=== PATIENT | female | born 1970 | race Caucasian/White ===

== ENCOUNTER 2017-02-20 21:05 | Emergency (ER) | payer OTHER, BC ==
[~2017-02-20] VITALS: Ht 160 cm; Wt 134.6 kg
[2017-02-20 21:05] VITALS: Ht 160 cm; Wt 134.6 kg
[~2017-02-20 21:05] MED LIST: ACET650T5 PO; ALBU8.5H5 IH; CALC1CAP22 PO; CETI10TA56 PO; CRAN500C3 PO; DIPH25CA84 PO; EMOL454C5 TOP; ESTR2TAB PO; ETAN50DI SQ; FISH1CAP59 PO; FLUT1DIS32 INH; FOLI-40 PO; FURO40TA5 PO; GABA-338 PO; IBUP-1724 PO; INSU100V13 SQ; INSU100V8 SQ; LORA10TA7 PO; METH2.5T33 PO; MOEX15TA3 PO; MULT-969 PO; NEBI20TA2 PO; PROC-14 PO; RABE20TA23 PO; RANI150T12 PO; SERT-104 PO; SIME125C PO; SIMV10TA6 PO; ULTIMATE FLORA PO; [UNRECOGNIZED DRUG - CODE]; [UNRECOGNIZED DRUG - CODE] PO
--- OUTSIDE RECORDS SUMMARY | 2017-02-20 21:09 | XMS REPORT | Continuity of Care Document ---
Author Author [facility] Organization [facility] Address Unknown Phone Unavailable Allergies Active Description Code Type Severity Reaction Onset Reported/Identified Relationship to Patient Clinical Status Yes hydrocodone bit hydrocodone bit Drug Allergy Unknown HIVES 07/13/2012 Yes oxycodone oxycodone Drug Allergy Unknown HIVES 07/13/2012 Yes oxycodone HCl oxycodone HCl Drug Allergy Unknown HIVES 07/13/2012 Yes tramadol tramadol Drug Allergy Unknown HIVES 07/13/2012 Yes clarithromycin clarithromycin Drug Allergy Moderate HIVES 08/28/2012 Yes NSAIDS (Non-Steroidal Anti-Inflamma NSAIDS (Non-Steroidal Anti-Inflamma Drug Allergy Moderate ITCHING/HIVES 08/28/2012 Yes oxaprozin oxaprozin Drug Allergy Moderate HIVES 08/28/2012 Yes acetaminophen acetaminophen Drug Allergy Unknown HIVES/ ITCHING/ TROUBLE BREATHING 01/12/2015 Yes adhesive adhesive Drug Allergy Unknown ITCHING AT SITE 01/12/2015 Yes hydrocodone bit hydrocodone bit Drug Allergy Unknown HIVES / TROUBLE BREATHING/ ITCHING 01/12/2015 Yes oxycodone oxycodone Drug Allergy Unknown HIVES/ ITCHING/ TROUBLE BREATHING 01/12/2015 Yes tramadol tramadol Drug Allergy Unknown HIVES/ITCHING/ TROUBLE BREATHAING 01/12/2015 Medications Problems Procedures Code Description Performed By Performed On 14.74 [facility] VITRECTOMY NEC Shivam Cai MD 01/16/2015 14.9 OTHER POST SEGMENT OPS Shivam Cai MD 01/16/2015 Results Test Result Range GLUCOSE (POC) - 07/13/12 12:15 GLUCOSE (POC) 193 mg/dL 70-99 POTASSIUM - 07/13/12 12:20 POTASSIUM 4.3 mmol/L 3.5-5.3 GLUCOSE (POC) - 07/13/12 17:29 GLUCOSE (POC) 186 mg/dL 70-99 GLUCOSE (POC) - 08/31/12 07:44 GLUCOSE (POC) 247 mg/dL 70-99 GLUCOSE (POC) - 01/16/15 13:22 GLUCOSE (POC) 201 mg/dL 70-99 POTASSIUM - 01/16/15 13:30 POTASSIUM 4.4 mmol/L 3.5-5.3 GLUCOSE (POC) - 01/16/15 15:52 GLUCOSE (POC) 131 mg/dL 70-99 GLUCOSE (POC) - 01/16/15 17:45 GLUCOSE (POC) 131 mg/dL 70-99 Encounters ACCT No. Visit Date/Time Discharge Status Pt. Type Provider Facility Loc./Unit Complaint [id number] 01/16/2015 12:33:00 2014 18:22:00 DIS Outpatient Trell WILKINSON, [facility] WBlayneOPRA [id number] 08/31/2012 06:15:00 2011 13:45:00 DIS Outpatient Trell WILKINSON, [facility] WTRICE [id number] 07/13/2012 11:46:00 2011 19:28:00 DIS Outpatient Trell WILKINSON, [facility] WTRICE
--- OUTSIDE RECORDS SUMMARY | 2017-02-20 21:10 | XMS REPORT | Summary of Care ---
Author Author Jodi Martin M.A., Jill A Organization Unknown Address [address] [place], [place] [id number] Phone Unavailable Care Team Providers Care Climate Change Risk Assessor Name Role Phone Jodi Martin M.A., A Unavailable Unavailable Ken Hightower Unavailable Unavailable Functional Status Name Dates Details Functional status health issues are not documented Status: Name Dates Details Cognitive status health issues are not documented Status: Problems Name Dates Details Chronic tonsillitis (474.00, J35.01) Status: Active Laryngopharyngeal reflux (LPR) (478.79, K21.9) Status: Active Otalgia, left (388.70, H92.02) Status: Active Medications Name Dates Details Benadryl Allergy 25 MG Oral Capsule * Start 04-Feb-2017 Active Loratadine Allergy Relief 10 MG Oral Tablet Dispersible * Refills: 0 * Start 04-Feb-2017 Active Sertraline HCl - 50 MG Oral Tablet * Refills: 0 * Start 04-Feb-2017 Active RaNITidine HCl - 150 MG Oral Tablet * Refills: 0 * Start 04-Feb-2017 Active Moexipril HCl - 15 MG Oral Tablet * Refills: 0 * Start 04-Feb-2017 Active ProAir HFA 108 (90 Base) MCG/ACT Inhalation Aerosol Solution * Refills: 0 * Start 04-Feb-2017 Active Advair Diskus 500-50 MCG/DOSE Inhalation Aerosol Powder Breath Activated * Refills: 0 * Start 04-Feb-2017 Active Gabapentin 300 MG Oral Capsule TAKE 1 CAPSULE 3 times daily May use twice daily if desired. * Refills: 0 * Start 04-Feb-2017 Active Methotrexate 2.5 MG Oral Tablet TAKE 8 TABLETS PER WEEK. * Refills: 0 * Start 04-Feb-2017 Active Simvastatin 10 MG Oral Tablet * Refills: 0 * Start 04-Feb-2017 Active Estradiol 2 MG Oral Tablet TAKE 2 TABLET Daily * Refills: 0 * Start 04-Feb-2017 Active Furosemide 40 MG Oral Tablet * Refills: 0 * Start 04-Feb-2017 Active Misc Rx KANDI LANCETS 6 X DAILY * Refills: 0 * Start 04-Feb-2017 Active Triamcinolone Acetonide 0.1 % External Lotion * Refills: 0 * Start 04-Feb-2017 Active Bystolic 2.5 MG Oral Tablet TAKE 1 TABLET DAILY. * Refills: 0 * Start 04-Feb-2017 Active NovoLOG 100 UNIT/ML Subcutaneous Solution INJECT 30 UNIT 3 times daily * Refills: 0 * Start 04-Feb-2017 Active Clobetasol Propionate 0.05 % External Cream * Refills: 0 * Start 04-Feb-2017 Active Misc Rx MISC NATURAL PRODUCTSCAPSULE POWDER TO SLEEPTAKE 2 TABLETS BY MOUTH AT BEDTIME * Refills: 0 * Start 04-Feb-2017 Active Vanicream External Cream * Refills: 0 * Start 04-Feb-2017 Active Flonase Allergy Relief 50 MCG/ACT Nasal Suspension * Refills: 0 * Start 04-Feb-2017 Active Aciphex 20 MG Oral Tablet Delayed Release TAKE 1 TABLET DAILY. * Refills: 0 * Start 04-Feb-2017 Active Multivitamin Adult Oral Tablet * Refills: 0 * Start 04-Feb-2017 Active Vitamin D3 5000 UNIT Oral Tablet * Refills: 0 * Start 04-Feb-2017 Active Arthritis Pain 650 MG Oral Tablet Extended Release TAKE 2 TABLET PRN * Refills: 0 * Start 04-Feb-2017 Active Ibuprofen 200 MG Oral Capsule TAKE 1 CAPSULE EVERY 4 TO 6 HOURS. * Refills: 0 * Start 04-Feb-2017 Active Gas-X 80 MG Oral Tablet Chewable CHEW AND SWALLOW 1 TABLET 4 TIMES DAILY, AFTER MEALS AND AT BEDTIME. * Refills: 0 * Start 04-Feb-2017 Active Folic Acid 1 MG Oral Tablet TAKE 1 TABLET DAILY. * Quantity: 30 Refills: 6 * Start 04-Feb-2017 Active Prochlorperazine Maleate 10 MG Oral Tablet TAKE 1 TABLET 3 times daily * Refills: 0 * Start 04-Feb-2017 Active Fish Oil 1200 MG Oral Capsule Take 1 capsule twice daily * Quantity: 60 Refills: 5 * Start 04-Feb-2017 Active Cranberry Fruit 405 MG Oral Capsule Take 1 capsule twice daily * Refills: 0 * Start 04-Feb-2017 Active ZyrTEC Allergy 10 MG Oral Tablet TAKE 1 TABLET BY MOUTH DAILY * Refills: 0 * Start 04-Feb-2017 Active Meclizine HCl - 25 MG Oral Tablet TAKE ONE TABLET BY MOUTH THREE TIMES DAILY FOR DIZZINESS * Quantity: 90 Refills: 0 * Start 04-Feb-2017 Active Lantus 100 UNIT/ML Subcutaneous Solution INJECT 90 UNIT Bedtime * Refills: 0 * Start 04-Feb-2017 Active Tessalon Perles 100 MG Oral Capsule TAKE 1 CAPSULE 3 TIMES DAILY NEEDED. * Refills: 0 * Start 04-Feb-2017 Active Allergies and Adverse Reactions Name Dates Details Biaxin (Allergy) Status: Active Daypro (Allergy) Status: Active Lortab TABS (Allergy) Status: Active Percocet TABS (Allergy) Status: Active Ultram (Allergy) Status: Active Procedures Procedure Dates Details Procedures not documented Immunization Name Dates Details Immunizations not documented Family History Name Dates Details Family history of hypertension (V17.49, Z82.49) Status: Active Family history of lung disease (V19.8, Z83.6) Status: Active Family history of sleep apnea (V19.8, Z82.0) Status: Active Family history of diabetes mellitus (V18.0, Z83.3) Status: Active Family history of thyroid disease (V18.19, Z83.49) Status: Active Social History Name Dates Details - Status: Name Dates Details Never smoker Vital Signs Date Test Result Details 04-Feb-2017 11:08 Temperature 97.7 f Status: Comments: Method: Heart Rate 94 /min Status: Comments: Location: ; Physical Findings 18 Status: Comments: Respiration Height 63.5 in Status: Weight 319 lb Status: Physical Findings 97 Status: Comments: O2 Saturation Body Mass Index Calculated 55.62 kg/m2 Status: Body Surface Area Calculated 2.37 m2 Status: Results Date Description Value Details Results not documented Plan of Care Name Dates Details Planned Observations Planned Goals not documented Instructions Name Dates Details Instructions not documented Encounters Appointment; Alicia Martin M.A.|C.C.CBlayne-A Encounter Diagnosis: Problem not documented On 04-Feb-2017 11:00"
--- OUTSIDE RECORDS SUMMARY | 2017-02-20 21:10 | XMS REPORT | Referral Summary ---
Author Author [facility] Organization [facility] Address Unknown Phone Unavailable Care Team Providers Care Insurance Administrative Assistant Name Role Phone Demar Hightower Primary Care Physician [phone] Encounter VC Date(s): 10/30/16 - 10/30/16 [facility] [address] [place] [address] GIANNI Mckenna [id number] Discharge Diagnosis: Chronic GERD Discharge Diagnosis: Frequent loose stools Discharge Disposition: 01-Home or Self Care Attending Physician: Himanshu Ang MD Admitting Physician: Himanshu Ang MD Referring Physician: Ken Hightower DO Vital Signs Most recent to 1 oldest [Reference Range]: Peripheral Pulse 102 bpm Rate [60-100 bpm] *HI* (10/30/16 3:45 PM) Respiratory Rate 18 br/min [14-20 br/min] (10/30/16 3:45 PM) Blood Pressure 148/80 mmHg [90-140/60-90 mmHg] *HI* (10/30/16 3:45 PM) SpO2 97 % (10/30/16 3:45 PM) Problem List Condition Effective Dates Status Health Status Informant Asthma(Confirmed) Active Cataracts(Confirmed) Active Depression(Confirmed Active ) Diabetes(Confirmed) Active High risk medication Active use(Confirmed) Fatigue(Confirmed) Active Fibromyalgia(Confirm Active ed) Hyperlipidemia(Confi Active rmed) Hypertension(Confirm Active ed) Insomnia(Confirmed) Active Morbid Active patient obesity(Confirmed) RF -VE, Anti CCP Resolved -ve, CRP 1.4(Confirmed) Rheumatoid Active arthritis(Confirmed) Trigger Active finger(Confirmed) Vitamin D Active deficiency(Confirmed ) Allergies, Adverse Reactions, Alerts Substance Reaction Severity Status Biaxin Active Daypro Active HYDROcodone Active Percocet 7.5/500 Active traMADol Active Medications acetaminophen 650 mg oral tablet, extended release 1 tabs, Oral, Daily, 0 Refill(s) Start Date: 03/20/14 Status: Ordered AcipHex 20 mg oral delayed release tablet tabs, Oral, Daily, 0 Refill(s) Start Date: 02/07/15 Status: Ordered Advair Diskus 500 mcg-50 mcg inhalation powder puffs, Inhalation, BID, 0 Refill(s) Start Date: 03/20/14 Status: Ordered Benadryl Allergy 25 mg, Oral, Bedtime (once a day), as needed for insomnia, 0 Refill(s) Start Date: 03/20/14 Status: Ordered Bystolic 20 mg oral tablet 20 mg 1 tabs, Oral, Daily, # 30 tabs, 0 Refill(s) Start Date: 10/30/16 Status: Ordered calcium (as carbonate)-vitamin D 600 mg-800 intl units oral tablet, chewable 2 tabs, Chewed, BID, # 60 tabs, 0 Refill(s) Start Date: 10/30/16 Status: Ordered cetirizine 10 mg oral tablet tabs, Oral, Daily, as needed for allergy symptoms, 0 Refill(s) Start Date: 02/07/15 Status: Ordered clobetasol 0.05% topical ointment 1 humberto, Topical, BID, # 45 g, 0 Refill(s), Pharmacy: [id number] Start Date: 12/04/15 Status: Ordered Compazine 5 mg oral tablet mg tabs, Oral, QID, as needed for nausea/vomiting, 0 Refill(s) Start Date: 03/19/16 Status: Ordered Cranberry oral tablet 0 Refill(s) Start Date: 02/07/15 Status: Ordered Enbrel SureClick 50 mg/mL subcutaneous solution See Instructions, INJECT 1ML SUB-Q ONCE A WEEK, # 4 Each, 2 Refill(s), Pharmacy : [id number], INJECT 1ML SUB-Q ONCE A WEEK Start Date: 08/08/15 Status: Ordered estradiol 2 mg oral tablet tabs, Oral, Daily, 0 Refill(s) Start Date: 03/20/14 Status: Ordered Fish Oil 1200 mg oral capsule caps, Oral, BID, 0 Refill(s) Start Date: 02/07/15 Status: Ordered Flonase 50 mcg/inh nasal spray 1 sprays, Nasal, BID, 0 Refill(s) Start Date: 10/30/16 Status: Ordered folic acid 1 mg oral tablet See Instructions, TAKE TWO TABLETS BY MOUTH ONCE DAILY, # 180 tabs, 4 Refill(s) , Pharmacy: [id number], TAKE TWO TABLETS BY MOUTH ONCE DAILY Start Date: 10/24/15 Status: Ordered furosemide 40 mg oral tablet 2 tabs, Oral, Daily, 0 Refill(s) Start Date: 03/20/14 Status: Ordered gabapentin 300 mg oral capsule caps, Oral, TID, 0 Refill(s) Start Date: 03/20/14 Status: Ordered Gas-X Extra Strength 125 mg oral capsule 1 caps, Oral, QID, prn, # 30 caps, 0 Refill(s) Start Date: 02/07/15 Status: Ordered Glucagon Emergency Kit for Low Blood Sugar mg, SubCutaneous, Once, 0 Refill(s) Start Date: 03/20/14 Status: Ordered ibuprofen 200 mg oral tablet 4 tabs, Oral, Bedtime (once a day), 0 Refill(s) Start Date: 03/20/14 Status: Ordered Lantus 100 units/mL subcutaneous solution 90 units, SubCutaneous, Once, 0 Refill(s) Start Date: 03/20/14 Status: Ordered loratadine 10 mg oral tablet tabs, Oral, Daily, 0 Refill(s) Start Date: 05/03/14 Status: Ordered meclizine 25 mg oral tablet 25 mg 1 tabs, Oral, q6hr, as needed for dizziness, 0 Refill(s) Start Date: 10/30/16 Status: Ordered methotrexate 2.5 mg oral tablet 8 tabs, Oral, qWeek, # 104 tabs, 0 Refill(s), Pharmacy: [id number], 8 tabs Oral qWeek Start Date: 05/03/14 Status: Ordered moexipril 15 mg oral tablet 1 tabs, Oral, Daily, # 30 tabs, 0 Refill(s) Start Date: 03/20/14 Status: Ordered multivitamin Daily, 0 Refill(s) Start Date: 02/07/15 Status: Ordered NovoLOG 100 units/mL subcutaneous solution See Instructions, SubCutaneous q 6 hours sliding scale 13-30 units, 0 Refill(s) Start Date: 10/30/16 Status: Ordered Power to sleep at bedtime Power to sleep at bedtime, 0 Refill(s) Start Date: 05/02/15 Status: Ordered ProAir HFA 90 mcg/inh inhalation aerosol puffs, Inhalation, QID, 0 Refill(s) Start Date: 03/20/14 Status: Ordered ranitidine 150 mg oral tablet 2 tabs, Oral, Bedtime (once a day), 0 Refill(s) Start Date: 03/20/14 Status: Ordered sertraline 50 mg oral tablet 1 tabs, Oral, Daily, # 30 tabs, 0 Refill(s) Start Date: 03/20/14 Status: Ordered simvastatin 10 mg oral tablet 10 mg 1 tabs, Oral, Bedtime (once a day), # 30 tabs, 0 Refill(s) Start Date: 10/30/16 Status: Ordered triamcinolone 0.1% topical cream 1 humberto, Topical, BID, to affected area as directed when needed, # 454 g, 0 Refill (s), Pharmacy: [id number] Start Date: 06/28/15 Status: Ordered Tylenol Arthritis Caplet 650 mg oral tablet, extended release 1,300 mg 2 tabs, Oral, Daily, Pain, 0 Refill(s) Start Date: 10/30/16 Status: Ordered Vitamin D3 5000 intl units oral capsule 1 caps, Oral, Daily, with food, # 100 caps, 0 Refill(s) Start Date: 02/07/15 Status: Ordered Results No data available for this section Immunizations Given and Recorded Vaccine Date Status Refusal Reason pneumococcal 23-polyvalent vaccine 09/29/00 Recorded Procedures Procedure Date Related Diagnosis Body Site Appendectomy1 Cardiac catheterisation Carpal tunnel release2 section3 Miscellaneous operations4 [id number] 4sinus surgery Social History Social History Type Response Smoking Status Never smoker Assessment and Plan Extracted from: Title: Ambulatory Patient Education Author: Himanshu Ang MD Date: 09/05 Gastroenterology Chronic Diarrhea Diarrhea is frequent loose and watery bowel movements. It can cause you to feel weak and dehydrated. Dehydration can cause you to become tired and thirsty and to have a dry mouth, decreased urination, and dark yellow urine. Diarrhea is a sign of another problem, most often an infection that will not last long. In most cases, diarrhea lasts 23 days. Diarrhea that lasts longer than 4 weeks is called long-lasting (chronic) diarrhea. It is important to treat your diarrhea as directed by your health care provider to lessen or prevent future episodes of diarrhea. CAUSES There are many causes of chronic diarrhea. The following are some possible causes: Gastrointestinal infections caused by viruses, bacteria, or parasites. Food poisoning or food allergies. Certain medicines, such as antibiotics, chemotherapy, and laxatives. Artificial sweeteners and fructose. Digestive disorders, such as celiac disease and inflammatory bowel diseases. Irritable bowel syndrome. Some disorders of the pancreas. Disorders of the thyroid. Reduced blood flow to the intestines. Cancer. Sometimes the cause of chronic diarrhea is unknown. RISK FACTORS Having a severely weakened immune system, such as from HIV or AIDS. Taking certain types of cancer-fighting drugs (such as with chemotherapy ) or other medicines. Having had a recent organ transplant. Having a portion of the stomach or small bowel removed. Traveling to countries where food and water supplies are often contaminated. SYMPTOMS In addition to frequent, loose stools, diarrhea may cause: Cramping. Abdominal pain. Nausea. Fever. Fatigue. Urgent need to use the bathroom. Loss of bowel control. DIAGNOSIS Your health care provider must take a careful history and perform a physical exam. Tests given are based on your symptoms and history. Tests may include: Blood or stool tests. Three or more stool samples may be examined. Stool cultures may be used to test for bacteria or parasites. X-rays. A procedure in which a thin tube is inserted into the mouth or rectum ( endoscopy). This allows the health care provider to look inside the intestine. TREATMENT Treatment is aimed at correcting the cause of the diarrhea when possible. Diarrhea caused by an infection can often be treated with antibiotic medicines. Diarrhea not caused by an infection may require you to take long-term medicine or have surgery. Specific treatment should be discussed with your health care provider. If the cause cannot be determined, treatment aims to relieve symptoms and prevent dehydration. Serious health problems can occur if you do not maintain proper fluid levels. Treatment may include: Taking an oral rehydration solution (ORS). Not drinking beverages that contain caffeine (such as tea, coffee, and soft drinks). Not drinking alcohol. Maintaining well-balanced nutrition to help you recover faster. HOME CARE INSTRUCTIONS Drink enough fluids to keep urine clear or pale yellow. Drink 1 cup (8 oz ) of fluid for each diarrhea episode. Avoid fluids that contain simple sugars, fruit juices, whole milk products, and sodas. Hydrate with an ORS. You may purchase the ORS or prepare it at home by mixing the following ingredients together: tsp (1.73 mL) table salt. tsp (3 mL) baking soda. tsp (1.7 mL) salt substitute containing potassium chloride. 1 tbsp (20 mL) sugar. 4.2 c (1 L) of water. Certain foods and beverages may increase the speed at which food moves through the gastrointestinal (GI) tract. These foods and beverages should be avoided. They include: Caffeinated and alcoholic beverages. High-fiber foods, such as raw fruits and vegetables, nuts, seeds, and whole grain breads and cereals. Foods and beverages sweetened with sugar alcohols, such as xylitol, sorbitol, and mannitol. Some foods may be well tolerated and may help thicken stool. These include: Starchy foods, such as rice, toast, pasta, low-sugar cereal, oatmeal, grits, baked potatoes, crackers, and bagels. Bananas. Applesauce. Add probiotic-rich foods to help increase healthy bacteria in the GI tract. These include yogurt and fermented milk products. Wash your hands well after each diarrhea episode. Only take seit-eyr-bvlhjvc or prescription medicines as directed by your health care provider. Take a warm bath to relieve any burning or pain from frequent diarrhea episodes. SEEK MEDICAL CARE IF: You are not urinating as often. Your urine is a dark color. You become very tired or dizzy. You have severe pain in the abdomen or rectum. Your have blood or pus in your stools. Your stools look black and tarry. SEEK IMMEDIATE MEDICAL CARE IF: You are unable to keep fluids down. You have persistent vomiting. You have blood in your stool. Your stools are black and tarry. You do not urinate in 68 hours, or there is only a small amount of very dark urine. You have abdominal pain that increases or localizes. You have weakness, dizziness, confusion, or lightheadedness. You have a severe headache. Your diarrhea gets worse or does not get better. You have a fever or persistent symptoms for more than 23 days. You have a fever and your symptoms suddenly get worse. MAKE SURE YOU: Understand these instructions. Will watch your condition. Will get help right away if you are not doing well or get worse. This information is not intended to replace advice given to you by your health care provider. Make sure you discuss any questions you have with your health care provider. Document Released: 12/26/2004 Document Revised: 10/11/2014 Document Reviewed: [employer] Patient Education 2016 [employer] No follow up information was provided. Extracted from: Title: Office Visit Note Author: Himanshu Ang MD Date: 10/30/16 Assessment/Plan 1.Chronic GERD Ordered: Office Visit Level 4 New 66574 2.Frequent loose stools Ordered: Office Visit Level 4 New [address]4811 3. Dysphagia Plan: Bidirectional endoscopy I did review the patient's chart including office note performed by her PCP fromOctober 15, 2016. Reviewed a rheumatology notefrom March 19, 2016. Reviewed recent gallbladder sonogram that was normal from October 16, 2016. I informed the patient that given her increasing heartburn/GERD, onset of dysphagia,change in bowel habits withdiarrheawould recommend that she undergo both an EGD as well as a colonoscopy for further evaluation. If a stricture is noted within her esophagus we will perform a dilatation at the same setting. Additionally upon colonoscopyif no abnormalities are noted we will likely perform random biopsiesto rule in or rule out the process of microscopic colitis.Risk of endoscopy was discussed with the patient. Risks include but are not inclusive of bleeding and/or perforation requiring surgery. Patient understood and was scheduled.
--- OUTSIDE RECORDS SUMMARY | 2017-02-20 21:10 | XMS REPORT | Summary of Care ---
Author Author Micheal Garduno M.D. Organization Unknown Address Unknown Phone Unavailable Care Team Providers Care Dough Scaler And Mixer Name Role Phone Micheal Garduno M.D. Unavailable Unavailable Ken Hightower Unavailable Unavailable Functional [...] Dates Details Instructions not documented Encounters Appointment; Micheal Garduno M.D. Encounter Diagnosis: Problem not documented On 04-Feb-2017 11:00
--- OUTSIDE RECORDS SUMMARY | 2017-02-20 21:10 | XMS REPORT ---
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 Active 56666171 Assessment Controlled type 1 diabetes mellitus with both eyes affected by retinopathy and macular edema, unspecified retinopathy severity E10.311 Sep, Active 84031974 Problem Controlled type 1 diabetes mellitus with both eyes affected by retinopathy and macular edema, unspecified retinopathy severity E10.311 Active 23209270 Problem Hypertension I10 Active 00763851 Problem Hyperlipemia E78.5 Active 90764946 Problem Proteinuria 791.0 Active 62590953 Problem Sleep apnea G47.30 Active 39235966 Problem Vitamin D deficiency E55.9 Active 04323036 ALLERGIES Substance Reaction Event Type Date Status Biaxin *macrolides* Unknown Non Drug Allergy Sep, Active Percocet *analgesics Opioid* Unknown Non Drug Allergy Sep, Active Ultram *analgesics Opioid* Unknown Non Drug Allergy Sep, Active Lortab *analgesics Opioid* Unknown Non Drug Allergy Sep, Active Daypro *analgesics Antiinflammatory* Unknown Non Drug Allergy Sep, Active SOCIAL HISTORY No smoking Hx information available PLAN OF CARE Activity Details Pending Test Hemoglobin A1c (HbA1c) 3 Months, prn,Reason: VITAL SIGNS Height 63.5 in 2016-10-09 Weight 325 lbs 2016-10-09 Heart Rate 78 /min 2016-10-09 Respiratory Rate 16 /min 2016-10-09 BMI 56.66 kg/m2 2016-10-09 Blood pressure systolic 130 mm Hg 2016-10-09 Blood pressure diastolic 72 mm Hg 2016-10-09 MEDICATIONS Medication Instructions Dosage Frequency Start Date End Date Duration Status Zyrtec Allergy 10 MG Orally Once a day 1 tablet 24h Active Gabapentin 300 MG Orally Three times a day 1 capsule 8h Active NovoLog 100U/ML Subcutaneous three times daily with meals 30 units 30 days Active Moexipril HCl 15 MG Orally Once a day 1 tablet 24h Active Furosemide 40 MG Orally Twice a day 1 tablet 12h Active Advair Diskus 500-50 MCG/DOSE Inhalation Twice a day 1 puff 12h Active Sertraline HCl 50 MG Orally Once a day 1 tablet 24h Active Aciphex 20 MG Orally Once a day 1 tablet 24h Active Enbrel SureClick 50 MG/ML Subcutaneous once a week 1 ml Sep, Active Benadryl Allergy 25 MG Orally daily 2 tablets as needed 24h Active Meclizine HCl 25 MG Orally Once a day 1 tablet as needed 24h Active Cranberry 405 MG Orally Twice a day 1 tablet with meals 12h Active Gas-X 80 MG Orally as needed 1-2 tablets Active Clobetasol Propionate 0.05 % Externally Twice a day 1 application to affected area 12h Active Ibuprofen 200 MG Orally every 6 hrs 1 tablet as needed 6h Active Methotrexate 2.5 MG Oral every Friday 8 tablets Active Simvastatin 10 MG Orally Once a day 1 tablet in the evening 24h Active ProAir HFA 108 (90 Base) MCG/ACT Inhalation 3 puffs as needed 0 Active Loratadine Allergy Relief 10 MG Orally Once a day 1 tablet 24h Active Misc Natural Products - Orally at bedtime Power to Sleep PM 2 tablet Active Carlito Contour Next Test 1 In Vitro 6 times a day as directed 4h Aug, 30 days Active Folic Acid 1 MG Orally Once a day 1 tablet 24h Active Bystolic 2.5 MG Orally Once a day 1 tablet 24h Active Ranitidine HCl 150 MG Orally Once a day 1 tablet as needed 24h Active Triamcinolone Acetonide 0.1 % Externally Twice a day 1 application to affected area 12h Active Multivitamin Adult - Orally once daily 2tablet 24h Active Lantus 100U/ML Subcutaneous daily at bedtime 90 units Active Estradiol 2 MG Orally Once a day 2 tablet 24h Active Vanicream - Externally daily 24h Active Carlito Microlet Lancets 1 as directed 4h Aug, 30 days Active Compazine 10 MG Orally Three times a day 1 tablet 8h Active Flonase Allergy Relief 50 MCG/ACT Nasally Once a day 2 spray 24h Active Tylenol Arthritis Pain 650 MG Orally every 8 hrs 2 tablets as needed 8h Active Vitamin D3 5000 UNIT Orally Once a day 1 tablet 24h Active Fish Oil 1200 MG Orally Twice a day 1 capsule 12h Active RESULTS No Results PROCEDURES Procedure Date Ordered Related Diagnosis Body Site GLYCATED HEMOGLOBIN TEST IH Oct 09, 2016 Office Visit, Est Pt., Level 4 Oct 09, 2016 IMMUNIZATIONS No Known Immunizations
--- OUTSIDE RECORDS SUMMARY | 2017-02-20 21:11 | XMS REPORT ---
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 Active 63880207 Problem Controlled type 1 diabetes mellitus with left eye affected by proliferative retinopathy and macular edema E10.3512 Active 39622799 Problem Hypertension I10 Active 96930029 Problem Hyperlipemia E78.5 Active 62797847 Problem Proteinuria 791.0 Active 03136599 Problem Sleep apnea G47.30 Active 55154015 Problem Vitamin D deficiency E55.9 Active 53004979 ALLERGIES Unknown Allergies SOCIAL HISTORY No smoking Hx information available PLAN OF CARE VITAL SIGNS MEDICATIONS Medication Instructions Dosage Frequency Start Date End Date Duration Status Glucagon Emergency 1 MG Injection 1 (one) Kit use as directed Per Carlos López PA-C supervised under Tk Reynoso. Dec, 30 Active RESULTS No Results PROCEDURES No Known procedures IMMUNIZATIONS No Known Immunizations
--- OUTSIDE RECORDS SUMMARY | 2017-02-20 21:11 | XMS REPORT ---
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 Active 00990128 Assessment Controlled type 1 diabetes mellitus with left eye affected by proliferative retinopathy and macular edema E10.3512 Dec, Active 21899869 Problem Controlled type 1 diabetes mellitus with left eye affected by proliferative retinopathy and macular edema E10.3512 Active 97192586 Problem Hypertension I10 Active 96409134 Problem Hyperlipemia E78.5 Active 16841609 Problem Proteinuria 791.0 Active 47897639 Problem Sleep apnea G47.30 Active 46564368 Problem Vitamin D deficiency E55.9 Active 07629557 ALLERGIES Substance Reaction Event Type Date Status Biaxin *macrolides* Unknown Non Drug Allergy Dec, Active Percocet *analgesics Opioid* Unknown Non Drug Allergy Dec, Active Ultram *analgesics Opioid* Unknown Non Drug Allergy Dec, Active Lortab *analgesics Opioid* Unknown Non Drug Allergy Dec, Active Daypro *analgesics Antiinflammatory* Unknown Non Drug Allergy Dec, Active SOCIAL HISTORY No smoking Hx information available PLAN OF CARE Activity Details Pending Test Hemoglobin A1c (HbA1c) 3 Months, prn,Reason: VITAL SIGNS Height 63.5 in 2017-01-07 Weight 315.0 lbs 2017-01-07 Heart Rate 90 /min 2017-01-07 Respiratory Rate 16 /min 2017-01-07 BMI 54.92 kg/m2 2017-01-07 Blood pressure systolic 160 mm Hg 2017-01-07 Blood pressure diastolic 88, 130 mm Hg 2017-01-07 MEDICATIONS Medication Instructions Dosage Frequency Start Date End Date Duration Status Advair Diskus 500-50 MCG/DOSE Inhalation Twice a day 1 puff 12h Active Vitamin D3 5000 UNIT Orally Once a day 1 tablet 24h Active Folic Acid 1 MG Orally Once a day 1 tablet 24h Active Bystolic 2.5 MG Orally Once a day 1 tablet 24h Active Compazine 10 MG Orally Three times a day 1 tablet 8h Active Methotrexate 2.5 MG Oral every Friday 8 tablets Active Simvastatin 10 MG Orally Once a day 1 tablet in the evening 24h Active Meclizine HCl 25 MG Orally Once a day 1 tablet as needed 24h Active Furosemide 40 MG Orally Twice a day 1 tablet 12h Active Carlito Microlet Lancets 1 as directed 4h Aug, 30 days Active ProAir HFA 108 (90 Base) MCG/ACT Inhalation every 4 hrs 2 puffs as needed 4h Active Lantus 100 unit/ml Subcutaneous daily at bedtime 90 units 90 days Active Loratadine Allergy Relief 10 MG Orally Once a day 1 tablet 24h Active Ibuprofen 200 MG Orally every 6 hrs 1 tablet as needed 6h Active NovoLog 100 unit/ml Subcutaneous three times daily with meals 35 units 90 days Active Aciphex 20 MG Orally Once a day 1 tablet 24h Active Vanicream - Externally once daily apply 24h Active Triamcinolone Acetonide 0.1 % Externally Twice a day 1 application to affected area 12h Active Estradiol 2 MG Orally Once a day 2 tablet 24h Active Cranberry 405 MG Orally Twice a day 1 tablet with meals 12h Active Flonase Allergy Relief 50 MCG/ACT Nasally Once a day 2 spray 24h Active Benadryl Allergy 25 MG Orally daily 2 tablets as needed 24h Active Multivitamin Adult - Orally once daily 2tablet 24h Active Misc Natural Products - Orally at bedtime Power to Sleep PM 2 tablet Active Fish Oil 1200 MG Orally Twice a day 1 capsule 12h Active Zyrtec Allergy 10 MG Orally Once a day 1 tablet 24h Active Gas-X 80 MG Orally as needed 1-2 tablets Active Clobetasol Propionate 0.05 % Externally Twice a day 1 application to affected area 12h Active Tessalon Perles 100 MG Orally Three times a day 1 capsule as needed 8h Active Tylenol Arthritis Pain 650 MG Orally every 8 hrs 2 tablets as needed 8h Active Gabapentin 300 MG Orally Three times a day 1 capsule 8h Active Carlito Contour Next Test 1 In Vitro 6 times a day check blood sugar 4h Aug, 30 days Active Sertraline HCl 50 MG Orally Once a day 1 tablet 24h Active Ranitidine HCl 150 MG Orally Once a day 1 tablet as needed 24h Active Moexipril HCl 15 MG Orally Once a day 1 tablet 24h Active RESULTS No Results PROCEDURES Procedure Date Ordered Related Diagnosis Body Site GLYCATED HEMOGLOBIN TEST January 07, 2017 Office Visit, Est Pt., Level 4 January 07, 2017 IMMUNIZATIONS No Known Immunizations
--- OUTSIDE RECORDS SUMMARY | 2017-02-20 21:11 | XMS REPORT ---
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
--- OUTSIDE RECORDS SUMMARY | 2017-02-20 21:12 | XMS REPORT | Summary of Care ---
Author Author Micheal Garduno M.D. Organization Unknown Address Unknown Phone Unavailable Care Team Providers Care Payment Analyst Name Role Phone Micheal Garduno M.D. Unavailable Unavailable Ken Hightower Unavailable Unavailable Functional Status Name Dates Details Functional status health issues are not documented Status: Name Dates Details Cognitive status health issues are not documented Status: Problems Name Dates Details Active medical history not documented Status: Medications Name Dates Details Benadryl Allergy 25 [...]
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
--- OUTSIDE RECORDS SUMMARY | 2017-02-20 21:36 | XMS REPORT | Continuity of Care Document ---
Author Author [facility] Organization [facility] Address Unknown Phone Unavailable Allergies Active Description [...] Code Description Performed By Performed On 14.74 [facility] VITRECTOMY NEC Shivam Cai MD 01/16/2015 14.9 [...] Status Pt. Type Provider Facility Loc./Unit Complaint [id number] 01/16/2015 12:33:00 2014 18:22:00 DIS Outpatient Trell WILKINSON, [facility] WBlayneOPRA [id number] 08/31/2012 06:15:00 2011 13:45:00 DIS Outpatient Trell WILKINSON, [facility] WTRICE [id number] 07/13/2012 11:46:00 2011 19:28:00 DIS Outpatient Trell WILKINSON, [facility] WTRICE
--- NOTE | 2017-02-20 21:46 | NUR ---
STATUS PT STARTED TO C/O HEADACHE WHILE IN CT. ADDITIONAL ORDERES RECIEVED. PT REPORTS SHE IS PRONE TO HEADACHE WHEN HER BLOOD PRESSURE RISES.
--- NOTE | 2017-02-20 21:53 | NUR ---
RETURN FROM CT
--- NOTE | 2017-02-20 22:53 | NUR ---
RETURN FROM XRAY
[2017-02-20] MEDS ORDERED: SUCR1ORA3 PO (23:05)
[2017-02-20] MEDS ORDERED: CYCL-375 PO (23:08)
[2017-02-20] MEDS ORDERED: CYCLOBENZAPRINE 10MG (PrePack) SENT HOME ONE (23:15)
--- NOTE | 2017-02-20 23:45 | NUR ---
DEPART PT IS GIVEN DISMISSAL INSTRUCTIONS WITH VERBAL UNDERSTANDING. PT IS GIVEN PREPACK X1 AND SCRIPT X1. PT LEAVES AMBULATORY TO ED EXIT
[2017-02-21 02:54] VITALS: BP 159/71; PULSE 84; RESP 20; TEMP 98.6; O2SAT 99
--- NOTE | 2017-02-21 07:59 | DI ---
Indication: ITS.REASON: right shoulder pain PROCEDURE: SHOULDER RIGHT 3 VIEWS: Encounter: Initial Comparison: None Findings: There is no acute fracture, dislocation or malalignment identified. Impression: No acute osseous abnormality. .
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
== END 2017-02-20 23:45 | disposition home or self-care (01) ==
LOC: ED 21:05
DX: S40.011A Contusion of right shoulder, initial encounter (principal); M54.2 Cervicalgia; V49.50XA Passenger injured in collision with unspecified motor vehicles in traffic accident, initial encounter; Y93.89 Activity, other specified; Y92.411 Interstate highway as the place of occurrence of the external cause; Y99.8 Other external cause status
CPT/HCPCS: 70450; 72125; 73030; 99284; L0150

== ENCOUNTER 2017-03-03 10:21 | Emergency (ER) | payer BC, OTHER ==
[~2017-03-03] VITALS: Ht 160 cm; Wt 138.3 kg
[~2017-03-03 10:21] MED LIST changes: +CYCL-375 PO; +SUCR1ORA3 PO; -[UNRECOGNIZED DRUG - CODE] PO
[2017-03-03 10:24] VITALS: Ht 160 cm; Wt 138.3 kg
--- OUTSIDE RECORDS SUMMARY | 2017-03-03 10:26 | XMS REPORT | Continuity of Care Document ---
Author Author [facility] Organization [facility] Address Unknown Phone Unavailable Allergies [...] Code Description Performed By Performed On 14.74 [facility] VITRECTOMY NEC Shivam Cai MD 01/16/2015 14.9 [...] Status Pt. Type Provider Facility Loc./Unit Complaint [id number] 01/16/2015 12:33:00 2014 18:22:00 DIS Outpatient Trell WILKINSON, [facility] WBlayneOPRA [id number] 08/31/2012 06:15:00 2011 13:45:00 DIS Outpatient Trell WILKINSON, [facility] WTRICE [id number] 07/13/2012 11:46:00 2011 19:28:00 DIS Outpatient Trell WILKINSON, [facility] WTRICE
--- NOTE | 2017-03-03 10:40 | NUR ---
PROVIDER DR DANIELS IN ROOM W/ PT.
--- NOTE | 2017-03-03 10:40 | ERPDOC ---
Departure Disposition Decision Date: March 03, 2017 Disposition Decision Time: 13:06 Disposition: 01 DISCHARGED HOME, SELF-CARE Impression Impression Impression: Primary Impression: Asthma exacerbation Severity: Moderate Condition: Stable Seen By: Physician only Referrals: SAADIA VILLARREAL DO (Family) Call the office for follow-up with somebody this week Patient Instructions: Asthma (ED) Problems/Meds/Labs Reviewed?: Yes Medications reviewed and manag: Yes Follow up care ordered?: Yes Mental Status: Alert, Oriented Scripts Prednisone (Prednisone) 20 Mg Tablet 40 MG PO WB for 3 Days, #6 TAB Take 2 (20 mg) tablets, by mouth, once a day with breakfast. Prov: JORGE DANIELS MD 03/03/17 Benzonatate (Tessalon Perle) 100 Mg Capsule 2 CAP PO Q8H Y for COUGH, #20 CAP Prov: JORGE DANIELS MD 03/03/17 HPI - Cough/URI General Chief Complaint: Cough,Fever,Flu,URI Stated Complaint: HARD TIME BREATHING Time Seen by Provider: 10:40 Source: patient Exam Limitations: no limitations HPI - Cough/URI Initial Comments Patient is a 46-year-old female presents emergency room for evaluation of difficulty breathing, cough. Patient does have a history of asthma, has been using her albuterol nebulizer at home with moderate relief. Patient states symptoms have been getting worse, cough is now worse, did attempt to see primary medical physician who is "out". Patient did attempt to urgent care who referred to the ER for evaluation. On arrival patient has some audible wheezing oxygen saturations 94% on room air patient is also complaining of some mild chest pain, worse with inspiration. Occurred At: home Onset/Timing: Gradual, Getting worse Duration: other (4 days) Allergies: Coded Allergies: clarithromycin (Verified Allergy, Unknown, HIVES, 03/03/17) ITCHING hydrocodone (Verified Allergy, Unknown, HIVES, 03/03/17) ITCHING oxaprozin (Verified Allergy, Unknown, HIVES, 03/03/17) ITCHING oxycodone (Verified Allergy, Unknown, HIVES, 03/03/17) ITCHING tramadol (Verified Allergy, Unknown, HIVES, 03/03/17) tramadol HCl (Verified Adverse Reaction, Unknown, RASH, 03/03/17) Past History Past Medical History Metabolic: diabetes, hypercholesterolemia, hypertension ENMT: allergies, sleep apnea Respiratory: asthma GI: GERD Neurological: migraines Musculoskeletal: rheumatoid arthritis Psychological: anxiety, bipolar, depression Surgical History General: EGD, appendix, colonoscopy, tonsils Cardiac: radio ablation Reproductive/: , hysterectomy Joint: carpal tunnel, foot Family History Family PMH: FOUND: DC, cancer, diabetes, hypertension Vaccines Hx Influenza Vaccination: Yes (2015) Hx Pneumococcal Vaccination: Yes (OCT 2016) Hx Tetanus Diptheria: Yes (08/2013) Social History Smoking Status: Never smoker Does patient use chewing tobac: No Second Hand Exposure: No Substance Use Type: does not use Sexuality: male partner Review of Systems Constitutional Constitutional: chills, weakness, DENIES: appetite decrease, dizziness, fever Eyes Vision: DENIES: double vision, loss of visual voss ENMT Sinuses: DENIES: congestion, rhinorrhea Mouth/Throat: sore throat, DENIES: scratchy throat Cardiovascular Cardiac: chest pain, dyspnea on exertion Pulmonary Respiratory: cough, dyspnea, pleuritic chest pain, tachypnea, DENIES: sputum GI Upper Abdomen: DENIES: nausea, pain, vomiting Lower Abdomen: DENIES: constipation, diarrhea, pain General: DENIES: frequency, urgency Musculoskeletal General: DENIES: cramps, pain, weakness Integumentary Skin: DENIES: color change, itching, rash Endocrine Endocrine: DENIES: heat/cold intolerance Hematologic/Lymphatic Hematologic/Lymphatic: DENIES: anemia Physical Exam General General Nourishment: well nourished, well developed, obese General Body Habitus: well groomed Vitals and Pain First Documented Vital Signs Date Time Temp Pulse Resp B/P Pulse Ox O2 Delivery O2 Flow Rate FiO2 03/03/17 10:24 99.0 98 18 177/75 96 Room Air Weight: Kilograms: 138.300 Height (feet): 5 Height (inches): 3.00 Triage Pain Scale: RN VS reviewed by Provider: Yes Eyes (brief) Eyes Brief: found: EOMI, PERRL ENMT (brief) ENMT Brief: FOUND: mucosa moist, normal dentition, NOT FOUND: nasal erythema, pharnyx erythema, tonsillar deviation Neck (brief) Neck: NOT FOUND: adenopathy, spasm, tenderness Respiratory Inspection: NOT FOUND: audible stridor, audible wheezing, hyperpnea, periodic breathing, prolonged expiration, tachypnea Auscultation: FOUND: decreased, wheezes, NOT FOUND: rales, rhonchi Cardiovascular (brief) Cardiac: FOUND: regular rate, regular rhythm Capillary Refill: <2 sec Lymphatic (brief) Lymphatic Brief: NOT FOUND: adenopathy Musculoskeletal (brief) Musculoskeletal Brief: NOT FOUND: spasm, tenderness Integumentary (brief) Integumentary Brief: FOUND: dry, pink, warm, NOT FOUND: rash Neurologic (brief) Neurological Brief: FOUND: CN w/o gross def to obs, motor-no gross deficits, sensory-no gross deficits Psychiatric (brief) Psychiatric Brief: FOUND: alert, oriented Differential Diagnoses Differential Diagnoses Considering: Acute Bronchitis, Asthma Exacerbation, Influenza, Pharyngitis, Pneumonia, Sinusitis, Strep, URI, Viral Syndrome, Other (pulmonary lungs, myocardial ischemia) Progress Results/Orders Orders Procedure Category Date Status Time Albuterol/Ipratropium PHA 03/03/17 Complete (Duoneb) 10:45 Iv Lock (Ed Only) EDM 03/03/17 Transmitted 10:46 Cbc W/Auto LAB 03/03/17 Complete Diff-Reflex Manual 10:46 Cmp - Comprehensive LAB 03/03/17 Complete Metabolic 10:46 Probnp LAB 03/03/17 Complete 10:46 Troponin I W LAB 03/03/17 Complete Hemolysis Index 10:46 EKG EKG 03/03/17 Taken 10:46 D-Dimer LAB 03/03/17 Complete 10:46 Chest, Pa & Lateral RAD 03/03/17 Resulted 10:46 Benzonatate (Tessalon PHA 03/03/17 Complete Perles 200 Mg) 11:00 G.I. Cocktail PHA 03/03/17 Complete (/Maalox/Lidocaine 11:00 Normal Saline (Normal PHA 03/03/17 Complete Saline Iv) 11:00 Ketorolac (Toradol) PHA 03/03/17 Complete 11:45 Albuterol/Ipratropium PHA 03/03/17 Complete (Duoneb) 12:45 Methylprednisolone PHA 03/03/17 Complete Sod Succ (Solu-Medrol 12:45 Lab Results Laboratory Tests Test 03/03/17 11:38 White Blood Count 6.8T/MM3 Red Blood Count 4.50M/MM3 Hemoglobin 13.0GM/DL Hematocrit 40.4% Mean Corpuscular Volume 89.8UM3 Mean Corpuscular Hemoglobin 28.9UUG Mean Corpuscular Hemoglobin Concent 32.2GM/DL RDW Standard Deviation 45.1FL Platelet Count 240T/MM3 Mean Platelet Volume 9.5UM3 Immature Granulocyte % (Auto) 0.1% Neutrophils (%) (Auto) 53.2% Lymphocytes (%) (Auto) 29.9% Monocytes (%) (Auto) 15.8% Eosinophils (%) (Auto) 0.7% Basophils (%) (Auto) 0.3% Absolute Immature Granulocyte (auto 0.01T/MM3 Absolute Neutrophils (auto) 3.6T/MM3 Absolute Lymphocytes (auto) 2.0T/MM3 Absolute Monocytes (auto) 1.1T/MM3 Absolute Eosinophils (auto) 0.1T/MM3 Absolute Basophils (auto) 0.0T/MM3 D-Dimer < 150NG/ML Turbidity < 20 Sodium Level 148MEQ/L Potassium Level 3.8MEQ/L Chloride Level 104MEQ/L Carbon Dioxide Level 29MEQ/L Anion Gap 15MEQ/L Blood Urea Nitrogen 12.0MG/DL Creatinine 0.7MG/DL Glomerular Filtration Rate Calc 91 BUN/Creatinine Ratio 17RATIO Glucose Level 104MG/DL Calculated Osmolality 284MOSM/KG Calcium Level 9.7MG/DL Total Bilirubin 0.50MG/DL Icterus Index < 2 Aspartate Amino Transf (AST/SGOT) 36U/L Alanine Aminotransferase (ALT/SGPT) 52U/L Alkaline Phosphatase 90U/L Troponin I < 0.012ng/ml HR-Vxh-D-Type Natriuretic Peptide 183PG/ML Total Protein 7.5G/DL Albumin 4.4G/DL Globulin 3.1G/DL Albumin/Globulin Ratio 1.4RATIO Chemistry Specimen Hemolysis < 15 Medications Current ED Medications Albuterol/ Ipratropium (Duoneb) 3 ml O ONCE AEROSOL Last administered on 10:51; Start 03/03/17 at 10:45; Stop 03/03/17 at 10:46; Status DC Benzonatate (TESSALON PERLES 200 mg) 200 mg O ONCE PO Last administered on 10:58; Start 03/03/17 at 11:00; Stop 03/03/17 at 11:01; Status DC Pharmacy Profile Note 30 ml 30 ml O ONCE PO Last administered on 03/03/17 10: 57; Start 03/03/17 at 11:00; Stop 03/03/17 at 11:01; Status DC Sodium Chloride (Normal Saline IV) 1,000 ml @ 999 mls/hr Q1H1M ONCE IV Last administered on 03/03/17 11:48; Start 03/03/17 at 11:00; Stop 03/03/17 at 12:00 ; Status DC Ketorolac Tromethamine (Toradol) 30 mg O ONCE IV Last administered on 11:49; Start 03/03/17 at 11:45; Stop 03/03/17 at 11:46; Status DC Albuterol/ Ipratropium (Duoneb) 3 ml O ONCE AEROSOL Last administered on 13:06; Start 03/03/17 at 12:45; Stop 03/03/17 at 12:46; Status DC Methylprednisolone Sodium Succinate (Solu-Medrol) 40 mg O ONCE IV Last administered on 03/03/17 12:55; Start 03/03/17 at 12:45; Stop 03/03/17 at 12:46 ; Status DC Progress Progress Patient with improvement of symptoms but not resolution of symptoms after DuoNeb No. 1, discussed risks and benefits of steroids with patient, at this time we'll provide small amount Solu-Medrol repeat DuoNeb. Patient continued improvement, cough is well-controlled with Tessalon pearls, laboratories EKG and chest x-ray are all noncontributory. We'll place patient on short dose 40 mg daily prednisone for 3 days, continue nebulizers follow-up with PCP's office EKG EKG : Rate: 60-100 Rhythm: sinus [place]: normal QRS: normal Intervals: normal ST/T: non-specific changes Interpreted by: signing physician Xray Xray : Xray: CXR PA/Lat Interpretation: Normal, Reviewed Written Report JORGE DANIELS MD March 03, 2017 10:40
[2017-03-03] MEDS ORDERED: ALBUTEROL/IPRATROPIUM INHAL. 2.5mg-0.5mg/3ml Neb. AEROSOL ONE ×2 (10:45→12:45)
--- OUTSIDE RECORDS SUMMARY | 2017-03-03 10:51 | XMS REPORT | Continuity of Care Document ---
Author Author [facility] Organization [facility] Address Unknown Phone Unavailable Allergies Active [...] Code Description Performed By Performed On 14.74 [facility] VITRECTOMY NEC Shivam Cai MD 01/16/2015 [...] Status Pt. Type Provider Facility Loc./Unit Complaint [id number] 01/16/2015 12:33:00 2014 18:22:00 DIS Outpatient Trell WILKINSON, [facility] WBlayneOPRA [id number] 08/31/2012 06:15:00 2011 13:45:00 DIS Outpatient Trell WILKINSON, [facility] WTRICE [id number] 07/13/2012 11:46:00 2011 19:28:00 DIS Outpatient Trell WILKINSON, [facility] WTRICE
--- NOTE | 2017-03-03 10:52 | NUR ---
XRAY PT GONE TO XRAY VIA WHEELCHAIR.
--- NOTE | 2017-03-03 10:57 | NUR ---
PO MED GI COCKTAIL GIVEN CHARTED.
--- NOTE | 2017-03-03 10:58 | NUR ---
PO MEDS TESSOLN PEARLES GIVEN CHARTED.
[2017-03-03] MEDS ORDERED: NORMAL SALINE 1,000 ML IV ONE (11:00)
[2017-03-03] MEDS ORDERED: G.I. COCKTAIL 30ml PO ONE (11:00)
[2017-03-03] MEDS ORDERED: BENZONATATE 200 MG CAPSULE PO ONE (11:00)
[2017-03-03] MEDS ORDERED: BENZ100C97 PO ×2 (11:07→13:07)
--- NOTE | 2017-03-03 11:09 | NUR ---
XRAY PT BACK FROM XRAY.
--- NOTE | 2017-03-03 11:27 | DI ---
INDICATION: ITS.REASON: off shortness of air wheezing history of asthma PROCEDURE: CHEST 2-VIEWS UPRIGHT (PA \T\ LAT) Encounter: Initial COMPARISON: March 19, 2016 FINDINGS: The lungs are clear without evidence of focal abnormal airspace opacity. There is no pleural effusion or pneumothorax. Motion artifact on the lateral view. Implanted cardiac monitoring device noted. The heart size, mediastinal contours and pulmonary vascularity are within normal limits. There is no significant skeletal abnormality. IMPRESSION: No acute cardiopulmonary disease. .
[2017-03-03 11:45] LABS: BASOPHILS % (AUTO) 0.3 % (0-2); EOSINOPHILS # (AUTO) 0.1 T/MM3 (0-0.5); EOSINOPHILS % (AUTO) 0.7 % (0-4); HCT - HEMATOCRIT 40.4 % (36-46); IMMATURE GRANULOCYTE # (AUTO) 0.01 T/MM3 (0.00-0.03); IMMATURE GRANULOCYTE % (AUTO) 0.1 % (0.0-0.5); LYMPHOCYTES % (AUTO) 29.9 % (23-45); MEAN CORPUSCULAR HGB 28.9 UUG (26-34); MEAN CORPUSCULAR HGB CONC(MCHC 32.2 GM/DL (31-37); MEAN CORPUSCULAR VOLUME 89.8 UM3 (80-100); MEAN PLATELET VOLUME 9.5 UM3 (9.4-12.4); MONOCYTES # (AUTO) 1.1 T/MM3 (0-0.8); MONOCYTES % (AUTO) 15.8 % (0-9.0); NEUTROPHILS #(AUTO)-ABSOLUTE 3.6 T/MM3 (1.8-7.7); NEUTROPHILS % (AUTO) 53.2 % (33-66); WBC - WHITE BLOOD COUNT 6.8 T/MM3 (4.5-11.0)
[2017-03-03] MEDS ORDERED: KETOROLAC 30mg/ml INJECTION IV ONE (11:45)
[2017-03-03 11:54] LABS: ALBUMIN 4.4 G/DL (3.5-5.0); ALBUMIN/GLOBULIN RATIO 1.4 RATIO (1.1-2.2); ALKALINE PHOSPHATASE 90 U/L (38-126); ALT (SGPT) 52 U/L (9-52); ANION GAP 15 MEQ/L (5-15); AST (SGOT) 36 U/L (14-36); BUN/CREATININE RATIO 17 RATIO (6-26); CALCIUM 9.7 MG/DL (8.4-10.2); CHLORIDE 104 MEQ/L (98-107); CO2 - CARBON DIOXIDE 29 MEQ/L (22-30); CREATININE 0.7 MG/DL (0.7-1.2); GLOMERULAR FILTRATION RATE 91; GLUCOSE 104 MG/DL (65-110); POTASSIUM 3.8 MEQ/L (3.6-5); SODIUM 148 MEQ/L (134-144); TOTAL PROTEIN 7.5 G/DL (6.3-8.2)
[2017-03-03 12:06] LABS: PROBNP 183 PG/ML (0-175)
[2017-03-03] MEDS ORDERED: MethylPREDNISolone SOD SUCC 40mg/1ml IV ONE (12:45)
[2017-03-03] MEDS ORDERED: PRED20TA PO (13:07)
[2017-03-03 13:20] VITALS: BP 149/65; PULSE 103; RESP 18; TEMP 98.1; O2SAT 93
--- NOTE | 2017-03-03 13:20 | NUR ---
DISCHARGE PT GIVEN INSTRUCTIONS FOR CONT CARE OF ASTHMA W/ RX X2 OF TESSALON PERLE AND PREDNISONE. PT VERBALIZED UNDERSTANDING AND SIGNED FORM, PT LEFT ER ALERT, AMBULATORY ,DYSPNEA IMPROVED VS CHARTED IN NO ACUTE DISTRESS.
== END 2017-03-03 13:20 | disposition home or self-care (01) ==
LOC: ED 10:21
DX: J45.901 Unspecified asthma with (acute) exacerbation (principal)
CPT/HCPCS: 71020; 80053; 83880; 84484; 85025; 85379; 93005; 94640; 96361; 96374; 96375; 99284; J1885; J2920; J7030; J7999

== ENCOUNTER 2017-03-10 08:12 | Day surgery (SDC) | payer BC ==
--- NOTE | 2017-03-07 14:00 | NUR ---
ARLETTE WHILE DOING PREOP PHONE CALL PT STATED SHE HAD BEEN IN THE ER ON FRIDAY WITH EXACERBATION OF HER ASTHMA. ER DOCTOR PUT HER ON STEROIDS AND INCREASED HER BREATHING TREATMENTS TO EVERY 4-6 HRS. SHE FELT THOUGH HER BREATHING WAS BETTER AND HAD FINISHED THE STEROID REGIMENT. PT. IS COUGHING UP PHLEGM AND IS STILL DOING INCREASED BREATHING TREATMENTS. ARIADNE IN ANESTHESIA WAS NOTIFIED OF PT'S CONDITION, HE REQUESTED THAT PT SEE HER PCP AND BE CLEARED BEFORE PROCEEDING WITH PROCEDURE. QIAN AT DR. VANCE OFFICE WAS NOTIFIED, SHE THEN ATTEMPTED TO GET A HOLD OF DR. DE LA ROSA OFFICE TO OBTAIN CLEARANCE. SHE REPORTED BACK THAT DR. VANCE OFFICE WAS CLOSED FOR THE DAY AND WAS UNABLE TO OBTAIN CLEARANCE. CASE CANCELLED PER ANESTHESIA.
--- NOTE | 2017-03-07 16:00 | NUR ---
ARLETTE LAUGHLIN FROM DR. VANCE OFFICE CALLED BACK AND STATED DR. VANCE WAS OUT OF SURGERY AND HAD SPOKEN WITH DR. VILLARREAL, WHO STATED PT WAS STABLE FOR SURGERY. Vincent AMAYA FROM ANESTHESIA WAS NOTIFIED OF THE UPDATE AND DECIDED TO PROCEED WITH PRIOR SURGERY SCHEDULE, PROVIDED THE PT. SOUNDS GOOD ON FRIDAY MORNING. DR. VANCE OFFICE AND PT NOTIFIED.
[~2017-03-10] VITALS: Ht 161.3 cm; Wt 142.7 kg
[~2017-03-10 08:12] MED LIST changes: +ALBU1.252 AEROSOL; +BENZ100C97 PO; -CYCL-375 PO; -FISH1CAP59 PO; -FLUT1DIS32 INH; +LIDOCAINE 1% (10mg/ml) 2ml SDV INJ ONE; +LR 1,000 ML IV SCH; +PRED20TA PO; -PROC-14 PO; -ULTIMATE FLORA PO
--- OUTSIDE RECORDS SUMMARY | 2017-03-10 08:16 | XMS REPORT | Continuity of Care Document ---
Author Author [facility] Organization [facility] Address Unknown Phone Unavailable Allergies Active [...] Code Description Performed By Performed On 14.74 [facility] VITRECTOMY NEC Shivam Cai MD 01/16/2015 14.9 [...] Status Pt. Type Provider Facility Loc./Unit Complaint [id number] 01/16/2015 12:33:00 2014 18:22:00 DIS Outpatient Trell WILKINSON, [facility] WBlayneOPRA [id number] 08/31/2012 06:15:00 2011 13:45:00 DIS Outpatient Trell WILKINSON, [facility] WTRICE [id number] 07/13/2012 11:46:00 2011 19:28:00 DIS Outpatient Trell WILKINSON, [facility] WTRICE
--- OUTSIDE RECORDS SUMMARY | 2017-03-10 08:17 | XMS REPORT ---
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
--- OUTSIDE RECORDS SUMMARY | 2017-03-10 08:17 | XMS REPORT ---
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
--- NOTE | 2017-03-10 08:50 | NUR ---
STATUS PATIENT REQUESTS TO ALLOW ANESTHESIA TO VISIT WITH HER BEFORE PROCEEDING WITH ADMISSION. STATES SHE HAD AN ASTHMA ATTACK 4 DAYS AGO AND HAS A COUGH AND CONGESTION TODAY. WILL CONTINUE TO MONITOR AND NOTIFY ANESTHESIA OF PATIENT STATEMENT.
[2017-03-10 09:06] VITALS: BP 174/86; PULSE 71; RESP 18; TEMP 97.5; O2SAT 98; Ht 161.3 cm; Wt 142.7 kg
--- NOTE | 2017-03-10 09:10 | NUR ---
STATUS HUMERA LEVY DATA ASSISTANT IN ROOM TO ASSESS PATIENT PREOP. PHYSICAL ASSESSMENT PERFORMED BY HUMERA LEVY AND RESULTS DISCUSSED WITH PATIENT. PATIENT STATES SHE FEELS "HOARSE" AND THAT HER AIR FLOW DOES NOT FEEL GOOD IT COULD. DISCUSSION WITH PATIENT PER ANESTHESIA CONCERNING POSTPONING OF SURGERY. PATIENT STATES THAT SHE WOULD PREFER TO CANCEL HER PROCEDURE TODAY UNTIL SHE FEELS BETTER.
--- NOTE | 2017-03-10 09:20 | NUR ---
STATUS DR. BONILLA IN ROOM TO VISIT WITH PATIENT PREOP. DISCUSSION WITH PATIENT COMPLETED CONCERNING RESCHEDULING OF PROCEDURE AT THIS TIME.
--- NOTE | 2017-03-10 09:35 | NUR ---
STATUS FOLLOW UP APPOINTMENT MADE WITH DR. BONILLA AT HIS [place] OFFICE ON Friday AT 1:45 PM. PATIENT VERBALIZES UNDERSTANDING.
== END 2017-03-10 09:40 | disposition home or self-care (01) ==
LOC: SCU 08:12
PROVIDERS: ATTEND Otolaryngology
DX: J35.01 Chronic tonsillitis (principal); K21.9 Gastro-esophageal reflux disease without esophagitis; H92.02 Otalgia, left ear; J45.909 Unspecified asthma, uncomplicated; F15.90 Other stimulant use, unspecified, uncomplicated; Z79.4 Long term (current) use of insulin; Z79.899 Other long term (current) drug therapy

== ENCOUNTER 2018-05-08 14:08 | Observation (INO) ==
[2018-05-08] MEDS ORDERED: ACETAMINOPHEN 325 MG TABLET PO PRN (14:53)
[2018-05-08] MEDS ORDERED: ONDANSETRON 4 MG/2 ML INJECTION IVP PRN (14:53)
[2018-05-08] MEDS ORDERED: SENNA + DOCUSATE TABLET PO PRN (14:53)
[2018-05-08] MEDS ORDERED: VANCOMYCIN - PHARMACY CONSULT MC ONE (15:02)
--- NOTE | 2018-05-08 15:02 | History & Physical Report ---
History of Present Illness Date: 05/08/18 Chief complaint: B/L leg infections HPI: Wanda Beverly is a 47 y/o chronically ill woman who has been battling BLE cellulitis for the last 2 months. Over the last 2 months, she's been on Xifaxan , Bactrim, Flagyl, and most recently, cephalexin, which she is still taking on a TID basis. She has a PMH significant for type 1 DM, RA, HTN, dyslipidemia, venous insufficiency, and SVT for which she has a loop recorder implanted. She has not seen any improvement in the redness, swelling, pain, or weeping of her legs despite being on multiple rounds of abx. She denies fevers or sweating but has been having chills. She sometimes shakes d/t pain. Her legs feel weak with exertion i.e. going on stairs. She also has asthma and has been having intermittent wheezing when the humidity is high; also suffers from seasonal allergies. She reports that she snores at night and will be undergoing a sleep study in the future; she also has severe GERD. She has had diarrhea on and off, but admits to having bowel problems at baseline - IBS and she reports that her small bowel "overproduces bacteria". She also has internal/external hemorrhoids which have not been causing bleeding recently. She often has 3-5 BM per day. She did not have any diarrhea today. With her RA, she often has joint pain/ swelling. She also tends to bruise/bleed easily as seen when she gives herself her insulin. She denies any appetite changes, n/v/c, chest pain, recent palpitations, dizziness, syncope, falling (though is at risk for falling d/t poor vision/peripheral vision), dysuria. She also notes that she nicked herself shaving on her left leg a long time ago which ultimately resulted in an 8x12 in ulceration, MRSA, and months of wound care. She saw Dr. Storm in the clinic on 05/07/18 for f/u right 5th toe fx. An MRI was neg for osteo but suggested poss. cellulitis. She saw Dr. Hightower in the clinic on 05/08/18, and with her poor response to treatment Dr. Hightower recommended hospitalization for further eval. and treatment. Review of Systems All systems PM: 10-point ROS was reviewed, no additional remarkable complaints except Review of systems: see HPI Past Medical History Medical History: Medical History (Last Reviewed 05/07/18 @ 11:01 by Bren Storm MD) Neuropathy (Chronic) Anxiety (Chronic) Colon polyp (Resolved) removed Cataract (Chronic) Supraventricular tachycardia (Acute) IBS (irritable bowel syndrome) (Chronic) Hearing loss in left ear (Chronic) Venous insufficiency (Chronic) MRSA infection (Acute) Diabetic macular edema (Chronic) Diabetic retinopathy (Chronic) Hyperlipidemia (Chronic) Hypertension (Chronic) Diabetes type I (Chronic) Depression (Chronic) Asthma (Chronic) Rheumatoid arthritis (Chronic) GERD (gastroesophageal reflux disease) (Chronic) Surgical History: EGD 2018. EGD/Colonoscopy, 11/07/2016. Appendectomy, around 2005 or 2006. T&A, 04/2017. radio cardiac ablation, 2015. Left breast biopsy - neg. Loop recorder. , 05/1992. hysterectomy, 1999. Bilat carpal tunnel, 1996. Bilat foot for plantar faciitis, around 2006 or . Rt breast biopsy, 2014. Rt eye, 2012. Lt eye, 2014. Linq implant (still in place in chest). Heart cath (no stents). Additional rt eye surgery. Sinus surgery. Trigger finger release on Lt 1st and 2nd finger Family History: Family History (Last Reviewed 05/07/18 @ 11:01 by Bren Storm MD) Mother Gastroparesis Diabetes Atrial fibrillation Asthma Anemia High blood pressure Thyroid disease Maternal Grandmother Diabetes Cancer of breast Unknown Brain cancer Maternal Uncle Melanoma Family History Updates: Mother - A-fib, RA, thyroid disease, SINTIA, HTN, DM2, Charcot foot. MGM - Breast CA, ovarian CA, HTN, thyroid disease. Father - dementia, DM, HTN. Heart disease on father's side of the family. Brother - back problems otherwise healthy. Family History: As Above - Social History Smoking status: Never smoker Substance use type: does not use Alcohol intake frequency: does not drink Social history: PCP - Dr. Hightower Endocrine - Dr. Romo CV - Dr. Arnett ENT - Dr. Garduno Medications Home Medications Medication Instructions Recorded Confirmed Type Albuterol Sulfate [Proair Hfa] 2 puff IH Q4-6H PRN #0 06/15/10 05/08/18 History Gabapentin 300 mg PO TID #0 04/10/15 05/08/18 History Moexipril HCl 22.5 mg PO ACB 05/02/17 05/08/18 History Simvastatin 20 mg PO HS 05/02/17 05/08/18 History Fluticasone/Salmeterol 250/50 1 puff INH DAILY 06/03/17 05/08/18 History [Advair 250-50 Diskus] Insulin Aspart [NovoLOG] 1 - 30 unit SQ TIDWM 06/03/17 05/08/18 History Multivitamin/Iron/Folic Acid 2 tab PO DAILY 06/03/17 05/08/18 History [Centrum Complete Multivit Tab] Potassium Chloride [K-DUR 10 mEq 10 meq PO DAILY 06/03/17 05/08/18 History Tablet] diphenhydrAMINE HCl [Benadryl] 50 mg PO HS PRN 06/03/17 05/08/18 History Estradiol [Estrace] 4 mg PO DAILY 02/03/18 05/08/18 History Folic Acid [Folate] 2 mg PO DAILY 02/03/18 05/08/18 History Insulin Glargine [Lantus] 110 unit SQ HS 02/03/18 05/08/18 History Loratadine [Claritin] 10 mg PO DAILY 02/03/18 05/08/18 History Pantoprazole Sodium [Protonix] 40 mg PO DAILY 02/03/18 05/08/18 History Sertraline [Zoloft] 100 mg PO DAILY 02/03/18 05/08/18 History Tofacitinib Citrate [Xeljanz Xr] 11 mg PO DAILY 02/03/18 05/08/18 History Triamcinolone 0.1% Cream 15 G 1 applicatio TOP BID 02/03/18 05/08/18 History [Kenalog] Keflex (cephalexin) 500 mg capsule 500 mg PO TID 10 Days #20 cap 05/07/18 History Cetirizine HCl [Zyrtec] 1 tab PO DAILY 05/08/18 05/08/18 History Cholecalciferol (Vitamin D3) 1 tab PO DAILY 05/08/18 05/08/18 History [Vitamin D3] Cranberry Fruit [Cranberry] 400 mg PO BIDWM 05/08/18 05/08/18 History Emollient Base [Vanicream] 1 applicatio TP DAILY 05/08/18 05/08/18 History Fluticasone/Salmeterol 500/50 1 puff INH BID PRN 05/08/18 05/08/18 History [Advair 500-50Diskus] Furosemide [Lasix 40 mg Tab] 1 tab PO BID 05/08/18 05/08/18 History Nebivolol HCl [Bystolic] 2.5 mg PO DAILY 05/08/18 05/08/18 History Simethicone [Gas Relief] 1 - 2 tab PO DAILY PRN 05/08/18 05/08/18 History Allergies Allergy/AdvReac Type Severity Reaction Status Date / Time clarithromycin Allergy Unknown HIVES Verified 05/07/18 08:46 hydrocodone Allergy Unknown HIVES Verified 05/08/18 15:35 oxaprozin Allergy Unknown HIVES Verified 05/08/18 15:35 oxycodone Allergy Unknown HIVES Verified 05/08/18 15:35 tramadol Allergy Unknown HIVES Verified 05/08/18 15:35 adhesive Allergy itchy/break Verified 05/07/18 08:46 out Exam - Constitutional Present: no acute distress, well nourished, well developed, morbidly obese - Routine HEENT Exam Head: Present: normocephalic Eye: Present: PERRL. Absent: conjunctival icterus, scleral injection ENT: Present: mucous membranes moist - Routine Neck Exam Present: supple - Routine Respiratory Exam Present: CTA bilaterally - Routine Cardiovascular Exam Present: RRR (distant heart sounds), S1, S2 - Routine Abdominal Exam Present: soft, non tender. Absent: normoactive bowel sounds (hypoactive) - Routine Extremities Exam Present: edema (B/L lower ext edema/lymphedema) - Routine Skin Exam Present: intact, dry, warm Comments: Venous stasis changes to BLE with erythematous/purple skin discoloration. This area is markedly tender to light touch. Both feet are slightly erythematous particularly around proximal metatarsals. Skin on feet is very dry. - Routine Neurological Exam Present: alert, oriented X3, CN II-XII intact, moving all extremities, vision grossly intact, hearing grossly intact, normal speech. Absent: sensory deficit , motor deficit, altered mental status, facial asymmetry - Routine Psychiatric Exam Present: normal affect, normal thought process, cooperative Results - Labs CBC & Chem 7: 05/08/18 16:34 05/08/18 16:34 Assessment and Plan Assessment and Plan: Assessment BLE cellulitis, failed outpt treatment DM1 with retinopathy and neuropathy HTN Dyslipidemia Asthma RA Venous insufficiency/stasis Hx MRSA IBS SVT s/p ablation Depression & anxiety Morbid obesity Plan Admit, observation status. Sepsis workup -- CBC, CMP, lactate, procalcitonin, CRP, BC x2, UA. Rocephin/vanco for cellulitis. Consult pharm. for vanco dosing. Monitor sugars; check A1c. She may monitor own BG and dose insulin based on Dr. Romo's recommendations. Consult wound care for recommendations. Further orders pending w/u results. Case discussed with Dr. Cross. Of note, home medications not reconciled at time of this H&P and have not yet been ordered. DVT Prophylaxis: Lovenox GI Prophylaxis: Protonix Resuscitation Status: Full Code - Time spent with patient Time with patient PN: 50 minutes - Physician Narrative Physician: Sapphire Cross Narrative: Date: 05/08/18 Time: 0256 I have independently interviewed and examined patient. Patient chart reviewed. Case discussed with my SENIOR ANALYST. Care plan developed with my supervision, agree with above. A pleasant 47-year-old female patient with evidence of chronic venous stasis changes in bilateral lower extremities and known history of long-standing edema bilateral lower extremities presented to PCP, Dr. Hightower office with complaints of redness, swelling and pain in lower extremities. Hospitalist service was contacted by PCP, patient reportedly failed 2 courses of outpatient antibiotic treatment and with this clinical picture, patient accepted as a direct admit for observation to medical floor. No reported subjective fever, no chills, no increased sweating. Patient does report increasing swelling in bilateral lower extremities and home medication furosemide dose was reportedly switched to 80 mg in the morning and 40 mg in the evening, without reported significant benefit. Physical exam: AAO x 3, NAD PERRLA, EOMI S1 and S2 heard on auscultation, no murmurs Lungs clear to auscultation bilaterally, no wheezing, no crackles Abdomen soft, nontender, positive bowel sounds Chronic venous stasis changes bilateral lower extremities along with nonpitting edema. Patient has purplish discoloration on the anterior aspect of bilateral lower extremities below the knees, nonpitting, no significant erythema noted. Positive induration. Assessment: Chronic venous stasis changes versus cellulitis failed outpatient antibiotic treatment, type 1 diabetes mellitus, hypertension, dyslipidemia, morbid obesity, known history of chronic venous insufficiency and lower extremities, depression, rheumatoid arthritis. Plan: Patient does not have leukocytosis following admission, afebrile. D-dimer was ordered, noted to be 156. Antibiotic coverage with IV Rocephin and vancomycin. Lactic acid 1.5, CRP elevated at 24.4. Patient will be monitored in the hospital. Repeat CBC with differential, BMP ordered for tomorrow. Hospital Course Summary Disclaimer: The visit summary below is not to be considered part of the above Progress Note. Hospital Course: 05/08/18 Admit, observation status. Sepsis workup -- CBC, CMP, lactate, procalcitonin, CRP, BC x2, UA. Rocephin/vanco for cellulitis. Consult pharm. for vanco dosing. Monitor sugars; check A1c. She may monitor own BG and dose insulin based on Dr. Romo's recommendations. Consult wound care for recommendations.
[2018-05-08] MEDS ORDERED: CEFTRIAXONE 1 G in NS 100 ML IV SCH (15:15)
[2018-05-08 15:39] VITALS: BMI 64.6
[2018-05-08] MEDS ORDERED: ALBUTEROL 2.5mg/3ml (0.083%) NEB AEROSOL PRN (16:32)
--- NOTE | 2018-05-08 17:31 | Pharmacy Consult-Antibiotics ---
Pharmacy Consult-Vancomycin - Laboratory Information WBC 8.6 T/MM3 (4.5-11.0) 05/08/18 16:34 BUN 21.0 MG/DL (7-17) H 05/08/18 16:34 Creatinine 0.7 mg/dL (0.7-1.2) 05/08/18 16:34 Procalcitonin < 0.05 NG/ML 05/08/18 16:34 - Consult Information VANCOMYCIN CONSULT: I am starting Vancomycin 2,000 mg iv every 8 hours. Thanks, Salvador Younger, Pharmacist
[2018-05-08] MEDS: TRIAMCINOLONE 0.1% CREAM 15 G TUBE TOP SCH (20:48)
[2018-05-08] MEDS: GABAPENTIN 300 MG CAPSULE PO SCH (20:48)
[2018-05-08] MEDS ORDERED: INSULIN GLARGINE 100unit/ml INJECTION SQ SCH (21:00)
[2018-05-08] MEDS ORDERED: SIMVASTATIN 20 MG TABLET PO SCH (21:00)
[2018-05-08] MEDS: BUDESONIDE INH.SOLN 0.5mg/2ml NEB AEROSOL SCH (22:12)
[2018-05-08] MEDS: ARFORMOTEROL NEB 15mcg/2ml AEROSOL SCH (22:13)
[2018-05-09] MEDS ORDERED: MOEXIPRIL 15 MG PO SCH (06:30)
[2018-05-09 07:30] VITALS: BP 125/58; PULSE 63; TEMP 96.9
[2018-05-09] MEDS: INSULIN ASPART 100unit/ml INJECTION SQ SCH ×2 (08:28→15:52)
[2018-05-09] MEDS: GABAPENTIN 300 MG CAPSULE PO SCH ×2 (08:29→15:53)
[2018-05-09] MEDS: TRIAMCINOLONE 0.1% CREAM 15 G TUBE TOP SCH (08:34)
[2018-05-09] MEDS ORDERED: CHOLECALCIFEROL PO SCH (09:00)
[2018-05-09] MEDS ORDERED: SERTRALINE 100 MG TABLET PO SCH (09:00)
[2018-05-09] MEDS ORDERED: NEBIVOLOL HCL 2.5 MG PO SCH (09:00)
[2018-05-09] MEDS ORDERED: MULTI-VITAMIN + MINERAL TABLET PO SCH (09:00)
[2018-05-09] MEDS ORDERED: ENOXAPARIN 40 MG/0.4 ML INJECTION SQ SCH (09:00)
[2018-05-09] MEDS ORDERED: NON-FORMULARY MEDICATION 1 EACH EACH (Multivitamin/Iron/Folic Acid [Centrum Complete Multi PO SCH (09:00)
[2018-05-09] MEDS: ARFORMOTEROL NEB 15mcg/2ml AEROSOL SCH (09:20)
[2018-05-09] MEDS: BUDESONIDE INH.SOLN 0.5mg/2ml NEB AEROSOL SCH (09:20)
[2018-05-09 09:25] VITALS: O2SAT 97
[2018-05-09 09:40] VITALS: RESP 16
--- NOTE | 2018-05-09 10:45 | Pharmacy Consult-Antibiotics ---
Pharmacy Consult-Vancomycin - Laboratory Information WBC 8.0 T/MM3 (4.5-11.0) 05/09/18 04:56 BUN 19.0 MG/DL (7-17) H 05/09/18 04:56 Creatinine 0.7 mg/dL (0.7-1.2) 05/09/18 04:56 Procalcitonin < 0.05 NG/ML 05/09/18 04:56 Vancomycin Trough 20.62 ug/mL (15-20) H 05/09/18 09:08 VANCOMYCIN THERAPY: Trough > 20 mcg/ml. Renal fx is stable. Will adjust regimen down slightly to VANCOMYCIN 2 GM IV Q12HRS. This gives calculated peak / trough of 37/15.2 respectively. Will confirm trough level prior to dose on 723 am. Target trough = 15 - 20 mcg /ml Thank you
[2018-05-09] MEDS ORDERED: BUMETANIDE 1 MG TABLET PO SCH (14:00)
--- NOTE | 2018-05-09 14:41 | Discharge Summary ---
Discharge Information Date of admission: 05/08/18 14:43 Anticipated date of discharge: 05/09/18 Attending Physician: Sapphire Cross MD Primary care physician: Ken Hightower DO Consults: 05/08/18 15:34 Wound Vein Clinic Consult [CONS] Routine Reason for consultation: venous stasis - Discharge Diagnosis (1) Cellulitis Status: Suspected Chronic venous stasis changes bilateral lower extremities Morbid obesity with strong clinical suspicion of underlying obstructive sleep apnea Suspicion of underlying pickwickian syndrome Type 1 diabetes mellitus HTN Dyslipidemia Asthma RA Hx MRSA IBS SVT s/p ablation, Linq implant in situ Depression & anxiety History of colon polyp status post excision Diabetic retinopathy Peripheral neuropathy - Laboratory Labs: 05/09/18 04:56 05/09/18 04:56 D-dimer 156 - Microbiology Microbiology 05/08/18 16:51 Peripheral/Iv Start Blood Culture - Preliminary Culture Initiated - Results Pending 05/08/18 16:34 Peripheral/Iv Start Blood Culture - Preliminary Culture Initiated - Results Pending History of Present Illness HPI: Wanda Beverly is a 47 y/o chronically ill woman who has been battling BLE cellulitis for the last 2 months. Over the last 2 months, she's been on Xifaxan , Bactrim, Flagyl, and most recently, cephalexin, which she is still taking on a TID basis. She has a PMH significant for type 1 DM, RA, HTN, dyslipidemia, venous insufficiency, and SVT for which she has a loop recorder implanted. She has not seen any improvement in the redness, swelling, pain, or weeping of her legs despite being on multiple rounds of abx. She denies fevers or sweating but has been having chills. She sometimes shakes d/t pain. Her legs feel weak with exertion i.e. going on stairs. She also has asthma and has been having intermittent wheezing when the humidity is high; also suffers from seasonal allergies. She reports that she snores at night and will be undergoing a sleep study in the future; she also has severe GERD. She has had diarrhea on and off, but admits to having bowel problems at baseline - IBS and she reports that her small bowel "overproduces bacteria". She also has internal/external hemorrhoids which have not been causing bleeding recently. She often has 3-5 BM per day. She did not have any diarrhea today. With her RA, she often has joint pain/ swelling. She also tends to bruise/bleed easily as seen when she gives herself her insulin. She denies any appetite changes, n/v/c, chest pain, recent palpitations, dizziness, syncope, falling (though is at risk for falling d/t poor vision/peripheral vision), dysuria. She also notes that she nicked herself shaving on her left leg a long time ago which ultimately resulted in an 8x12 in ulceration, MRSA, and months of wound care. She saw Dr. Storm in the clinic on 05/07/18 for f/u right 5th toe fx. An MRI was neg for osteo but suggested poss. cellulitis. She saw Dr. Hightower in the clinic on 05/08/18, and with her poor response to treatment Dr. Hightower recommended hospitalization for further eval. and treatment. Objective Vital signs: Temperature 96.9 F 05/09/18 07:27 Pulse Rate 63 05/09/18 07:27 Respiratory Rate 16 05/09/18 09:35 Blood Pressure 125/58 05/09/18 07:27 Pulse Oximetry 97 05/09/18 13:13 Height/Weight/BMI: Height 1.6 m Weight 167.2 kg Body Mass Index 64.6 - Additional findings Additional findings: AAO x 3, NAD, morbid obesity PERRLA, EOMI S1 and S2 heard on auscultation, no murmurs Lungs clear to auscultation bilaterally, no wheezing, no crackles Abdomen soft, nontender, positive bowel sounds Chronic venous stasis changes bilateral lower extremities along with nonpitting edema. Patient has purplish discoloration on the anterior aspect of bilateral lower extremities below the knees, nonpitting, no significant erythema noted. Positive induration. Hospital Course This is a general summary of the patient's hospital course. For more details refer to the complete medical record. Hospital course: 05/08/18 Admit, observation status. Sepsis workup -- CBC, CMP, lactate, procalcitonin, CRP, BC x2, UA. Rocephin/vanco for suspected cellulitis. Consult pharm. for vanco dosing. Monitor sugars; check A1c. She may monitor own BG and dose insulin based on Dr. Romo's recommendations. Consult wound care for recommendations. 05/09/2018 Patient afebrile, no leukocytosis noted on labs. Clinically, no evidence of systemic infection. Blood cultures 2 so far negative at the time of discharge. Patient does have fluid retention, treated with Bumex 1 mg by mouth 1. Patient did have hypoxia, oxygen saturations last low as 74% at night, clinical suspicion for obstructive sleep apnea and possible undiagnosed pickwickian syndrome Patient will be set up for outpatient sleep study with Dr. Ellsworth office, facilities planner Miss Rogers aware. He shouldn't reports she has had echocardiogram done with filing and polishing supervisor, Dr. Arnett in the office within the past 6 months, advised patient to follow-up with cardiology. Resuscitation Status: Full Code Discharge Plan - Discharge Disposition Discharge Date: 05/09/18 Disposition: 86 Home Health Service *Condition: Stable Reason For Visit (Visit label in EMR): bilateral leg cellulitis - Discharge Medications *Discharge Medications: New Clindamycin HCl 450 mg PO TIDWM 14 Days #126 cap Metolazone [Zaroxolyn] 5 mg PO AM #14 tab Continue Albuterol Sulfate [Proair Hfa] 2 puff IH Q4-6H PRN #0 PRN Reason: SHORTNESS OF AIR Gabapentin 300 mg PO TID #0 Moexipril HCl 22.5 mg PO ACB Insulin Aspart [NovoLOG] 1 - 30 unit SQ TIDWM Potassium Chloride [K-DUR 10 mEq Tablet] 10 meq PO DAILY Fluticasone/Salmeterol 250/50 [Advair 250-50 Diskus] 1 puff INH DAILY Estradiol [Estrace] 4 mg PO DAILY Insulin Glargine [Lantus] 110 unit SQ HS Folic Acid [Folate] 2 mg PO DAILY Loratadine [Claritin] 10 mg PO DAILY Pantoprazole Sodium [Protonix] 40 mg PO DAILY Sertraline [Zoloft] 100 mg PO DAILY Tofacitinib Citrate [Xeljanz Xr] 11 mg PO DAILY Triamcinolone 0.1% Cream 15 G [Kenalog] 1 applicatio TOP BID Cranberry Fruit [Cranberry] 400 mg PO BIDWM Simethicone [Gas Relief] 1 - 2 tab PO DAILY PRN PRN Reason: Gas Emollient Base [Vanicream] 1 applicatio TP DAILY Nebivolol HCl [Bystolic] 2.5 mg PO DAILY Furosemide [Lasix 40 mg Tab] 1 tab PO BID Fluticasone/Salmeterol 500/50 [Advair 500-50Diskus] 1 puff INH BID PRN PRN Reason: Shortness Of Air/Wheezing Simvastatin 20 mg PO HS Multivitamin/Iron/Folic Acid [Centrum Complete Multivit Tab] 2 tab PO DAILY diphenhydrAMINE HCl [Benadryl] 50 mg PO HS PRN PRN Reason: Prn Orders Cetirizine HCl [Zyrtec] 1 tab PO DAILY Cholecalciferol (Vitamin D3) [Vitamin D3] 1 tab PO DAILY Discontinued Keflex (cephalexin) 500 mg capsule 500 mg PO TID 10 Days #20 cap - Discharge Packet/Instructions *Diet: ADA 2000 kcal, low salt diet. 1.5 L fluid restriction in 24 hours. *Activity: As tolerated. Follow home health recommendations *Pain Management/Treatment: Prescriptions as provided by PCP *Wound Care: As recommended by PCP, orthopedics Additional Instructions: Keep bilateral lower extremities elevated while resting in bed with 12 pillows. Please keep appointment for outpatient sleep study *Expected Signs/Symptoms: Gradual improvement in venous stasis changes in lower extremities *Notify Physician if: Increased redness, warmth, swelling of lower extremities, fever with temperature greater than 101F, chest pain, palpitations, shortness of breath or any other concerning findings. *During Business Hours Contact: Dr. Hightower office *After Business Hours Contact: Call [facility] at [phone] and ask that the on-call physician be paged *Pending Lab/Results: Follow up w/your PCP (blood cultures so far negative) - Referrals/Follow Up *Referrals/Follow Up: Ken Hightower DO [Primary Care Provider] - Juan Arnett MD [Physician] - Morgan Landa MD [Physician] - Bren Storm MD [Physician] - - Patient Handouts - Dismissal Complete Discharge Instructions are:: Complete Physician Narrative - Narrative Attestation Narrative: Date: 05/09/18 Time: 0638
== END 2018-05-09 16:30 | disposition home health service (06) ==
LOC: MED
PROVIDERS: ADMIT Internal Medicine; ATTEND Internal Medicine